=== PATIENT | female | born 1945 | race Caucasian/White ===

== ENCOUNTER → 2023-10-13 13:44 | Outpatient (REF) | payer MEDICARE, SELFPAY | LOC: HWWDC 13:44 | PROVIDERS: ATTENDING PHYSICIAN Physician Assistant Medical | DX: Z12.31 Encounter for screening mammogram for malignant neoplasm of breast (principal) | CPT/HCPCS: 77063; 77067 ==

== ENCOUNTER → 2024-10-18 10:10 | Outpatient (REF) | payer MEDICARE, SELFPAY | LOC: HWWDC 10:10 | PROVIDERS: ATTENDING PHYSICIAN Physician Assistant Medical | DX: Z12.31 Encounter for screening mammogram for malignant neoplasm of breast (principal) | CPT/HCPCS: 77063; 77067 ==

== ENCOUNTER → 2025-03-21 12:58 | Outpatient (REF) | payer MEDICARE, SELFPAY | LOC: HWRAD 12:58 | PROVIDERS: ATTENDING PHYSICIAN Physician Assistant Medical | DX: M54.41 Lumbago with sciatica, right side (principal); M25.551 Pain in right hip | CPT/HCPCS: 72110; 73502 ==